=== PATIENT | female | born 1965 | race Caucasian/White ===

== ENCOUNTER 2022-03-23 08:58 | Outpatient (CLI) | payer OTHER | END 2022-03-23 08:59 | disposition home or self-care (01) | LOC: DTY/OP 08:58 | PROVIDERS: ATTEND Surgery | DX: E66.01 Morbid (severe) obesity due to excess calories (principal) | CPT/HCPCS: 97802 ==

== ENCOUNTER 2022-04-16 08:30 | Inpatient (IN) | payer OTHER ==
[2022-04-19 13:45] VITALS: BMI 36.2
[2022-04-21] MEDS ORDERED: Heparin 5,000 UNITS/ML VIAL ONE (09:01)
[2022-04-21] MEDS ORDERED: Bupivacaine 0.25% HCL 30 ML VIAL ONE (09:02)
[2022-04-21] MEDS ORDERED: Lidocaine 1% w/Epinephrine 1:100K 20 ML VIAL ONE (09:02)
[2022-04-21] MEDS ORDERED: fentaNYL Citrate/PF 100 MCG/2 ML SYRINGE ONE (09:05)
[2022-04-21] MEDS ORDERED: HYDROmorphone 0.5 MG/0.5 ML SYRINGE ONE ×2 (09:05→12:52)
[2022-04-21] MEDS ORDERED: SUGAMMADEX SODIUM 200 MG/2 ML VIAL ONE (09:05)
[2022-04-21] MEDS ORDERED: Sodium Chloride 0.9% 100 ML ONE (09:12)
[2022-04-21] MEDS ORDERED: CEFAZOLIN 2 GM VIAL ONE (09:12)
[2022-04-21] MEDS ORDERED: Lidocaine 1% PF 5 ML VIAL ONE (09:22)
[2022-04-21] MEDS ORDERED: Ondansetron PF 4 MG/2 ML Vial ONE (09:22)
[2022-04-21] MEDS ORDERED: PROPOFOL 200 MG/20 ML VIAL ONE (09:22)
[2022-04-21] MEDS ORDERED: Ketorolac Tromethamine 30 MG/ML VIAL ONE (09:22)
[2022-04-21] MEDS ORDERED: ePHEDrine 50 MG/ML VIAL ONE (09:22)
[2022-04-21] MEDS ORDERED: Dexamethasone 20 MG/5 ML VIAL ONE (09:22)
[2022-04-21] MEDS ORDERED: Rocuronium Bromide 10 MG/ML (10ML VIAL) ONE (09:22)
[2022-04-21] MEDS ORDERED: Promethazine HCl 25 MG/ML VIAL IVPB PRN (10:51)
[2022-04-21] MEDS ORDERED: HYDROmorphone 2 MG/ML VIAL SLOW IVP PRN (10:51)
[2022-04-21] MEDS ORDERED: Ondansetron HCl/PF 4 MG/2 ML Vial IVP PRN (10:51)
[2022-04-21] MEDS ORDERED: Promethazine HCl 25 MG/ML VIAL IM PRN ×2 (10:51→11:00)
[2022-04-21] MEDS ORDERED: Dextrose 50% Abboject 50 ML SYRINGE SLOW IVP PRN (11:00)
[2022-04-21] MEDS ORDERED: diphenhydrAMINE 50 MG/ML VIAL IVP PRN (11:00)
[2022-04-21] MEDS ORDERED: Morphine 4 MG/ML VIAL SLOW IVP PRN (11:00)
[2022-04-21] MEDS ORDERED: Morphine 2 MG/ML VIAL SLOW IVP PRN (11:00)
[2022-04-21] MEDS ORDERED: hydrALAZINE 20 MG/ML VIAL SLOW IVP PRN (11:00)
[2022-04-21] MEDS ORDERED: Dextrose 5% in Water 1,000 ML IV PRN (11:00)
[2022-04-21] MEDS ORDERED: Hydrocodone-Acetamin 15 ML UDCUP PO PRN (11:00)
[2022-04-21] MEDS ORDERED: Ondansetron PF 4 MG/2 ML Vial IVP PRN (11:00)
[2022-04-21] MEDS ORDERED: Fentanyl 100 MCG/2 ML VIAL ONE ×2 (11:31→12:06)
[2022-04-21] MEDS: Ketorolac Tromethamine 30 MG/ML VIAL IVP SCH ×3 (14:18→23:57)
[2022-04-21] MEDS: D5 1/2 NS w/20 mEq KCL 1,000 ML IV SCH ×2 (14:57→22:44)
[2022-04-21] MEDS: CEFAZOLIN 2 GM in Sodium Chloride 0.9% 100 ML IVPB SCH (17:42)
[2022-04-22] MEDS: CEFAZOLIN 2 GM in Sodium Chloride 0.9% 100 ML IVPB SCH (00:01)
[2022-04-22] MEDS: D5 1/2 NS w/20 mEq KCL 1,000 ML IV SCH ×2 (04:14→16:00)
[2022-04-22] MEDS: Ketorolac Tromethamine 30 MG/ML VIAL IVP SCH ×2 (06:00→16:00)
[2022-04-22 06:04] LABS: #Neutrophils 9.2 thou/uL (1.40-6.50); %Basophils 0.1 % (0.0-1.0); %Eosinophils 0.1 % (0.0-10.0); %Lymphocytes 16.1 % (21.0-51.0); %Monocytes 7.9 % (0.0-10.0); %Neutrophils 75.8 % (42.0-75.0); Mean Corpuscular HGB CONC 33.3 g/dL (32.0-36.0); Mean Corpuscular Hemoglobin 32.7 pg (27.0-31.0); Mean Corpuscular Volume 98.3 fL (78.0-98.0); Mean Platelet Volume 7.5 fL (7.4-10.4); Platelet Count 288 thou/uL (130-400); Red Blood Cell (RBC) Count 4.29 mill/uL (4.20-5.40); White Blood Cell (WBC) Count 12.2 thou/uL (4.8-10.8)
[2022-04-22 06:26] LABS: Anion Gap 15 mmol/L (10-20); BUN (Urea Nitrogen) 9 mg/dL (9.8-20.1); Calc. Creatinine Clearance 126 mL/min (70-130); Calcium 9.8 mg/dL (7.8-10.44); Carbon Dioxide 26 mmol/L (22-29); Chloride 104 mmol/L (98-107); Estimated GFR 90; Glucose 140 mg/dL (70-105); Potassium 4.9 mmol/L (3.5-5.1); Sodium 140 mmol/L (136-145)
[2022-04-22] MEDS ORDERED: Pantoprazole 40 MG VIAL IVP SCH (09:00)
[2022-04-22] MEDS ORDERED: Enoxaparin Sodium 40 MG/0.4 ML SYRINGE SC SCH (09:00)
[2022-04-22 12:41] VITALS: BP 119/69; TEMP 98.1
== END 2022-04-22 13:30 | disposition home or self-care (01) | DRG 621 ==
LOC: SURG A 04-21 07:32 → SJJU 04-21 14:23
PROVIDERS: ADMIT Surgery; ATTEND Surgery
PROC: 0DB64Z3 Excision of Stomach, Percutaneous Endoscopic Approach, Vertical (ICD-10-PCS; principal; 2022-04-21)
PROC: 0BQT4ZZ Repair Diaphragm, Percutaneous Endoscopic Approach (ICD-10-PCS; 2022-04-21)
DX: E66.01 Morbid (severe) obesity due to excess calories (principal); K44.9 Diaphragmatic hernia without obstruction or gangrene; E78.5 Hyperlipidemia, unspecified
CPT/HCPCS: 36415; 80048; 85025; 88307; 94760; C9113; J0690; J1100; J1170; J1644; J1650; J1885; J2405; J2704; J3010; J3480; J3490; S0020

== ENCOUNTER 2022-04-16 08:35 | Outpatient (CLI) | payer BC, SELFPAY | END 2022-04-16 08:36 | disposition home or self-care (01) | LOC: LABBT 08:35 | PROVIDERS: ATTEND Surgery | DX: E66.01 Morbid (severe) obesity due to excess calories (principal); Z20.822 Contact with and (suspected) exposure to COVID-19 | CPT/HCPCS: U0003; U0005 ==